=== PATIENT | female | born 1990 | race Caucasian/White ===

== ENCOUNTER → 2017-08-04 | Emergency (ER) | payer OTHER ==
[~2017-08-04] VITALS: Ht 154.9 cm; Wt 52.2 kg
[~2017-08-04] MED LIST: CYCLOBENZAPRINE10 MG PO; IBUPROFEN800 MG PO; KEFLEX500 MG PO; NAPROXEN500 MG PO; NORCO 5-325 TA1 EACH PO; ULTRAM50 MG PO; ZOFRAN ODT4 MG PO
== END ==
LOC: ED 03:37
DX: O04.6 Delayed or excessive hemorrhage following (induced) termination of pregnancy (principal); F17.200 Nicotine dependence, unspecified, uncomplicated
CPT/HCPCS: 76801; 76817; 84702; 85025; 96361; 96374; 96375; 99284; J2270; J2405; J7030

== ENCOUNTER 2021-09-28 15:59 | Emergency (ER) | payer OTHER ==
[~2021-09-28] VITALS: Ht 154.9 cm; Wt 74.8 kg
[~2021-09-28 15:59] MED LIST changes: +AMOXICILLIN500 MG PO
--- OUTSIDE RECORDS SUMMARY | 2021-09-28 16:06 | XMS ---
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 Dary has no Care Guidelines for this patient. Juan VISIT COUNT (12 MO.) 1 ROSY Aguirre TOTAL 1 NOTE: Visits indicate total known visits. ED/C VISIT TRACKING (12 MO.) 09/28/2021 16:00 [facility] TYPE: Emergency COMPLAINT: - RT KNEE INJURY INPATIENT VISIT TRACKING (12 MO.) No inpatient visits to display in this time frame [id number]
[2021-09-28] MEDS ORDERED: MONO-LINYAH1 EACH PO (16:19)
[2021-09-28] MEDS ORDERED: HYDROXYZINE HCL25 MG PO (16:19)
[2021-09-28] MEDS ORDERED: ESCITALOPRAM OX20 MG PO (16:19)
== END 2021-09-28 17:17 | disposition home or self-care (01) ==
LOC: ED 15:59
DX: M25.561 Pain in right knee (principal); D64.9 Anemia, unspecified; F17.200 Nicotine dependence, unspecified, uncomplicated; Z79.899 Other long term (current) drug therapy
CPT/HCPCS: 73560; 99283-25

== ENCOUNTER 2023-12-14 17:16 | Emergency (ER) | payer OTHER ==
[~2023-12-14] VITALS: Ht 154.9 cm; Wt 74.5 kg
[~2023-12-14 17:16] MED LIST changes: +AMPHETAMINE SAL10 MG PO; +DEXTROAMP-AMPHE30 MG PO; +ESCITALOPRAM OX20 MG PO; +HYDROXYZINE HCL25 MG PO; +MONO-LINYAH1 EACH PO; +NEXPLANON68 MG SUB-Q; +OMEPRAZOLE20 MG PO
--- OUTSIDE RECORDS SUMMARY | 2023-12-14 17:18 | XMS ---
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 EZac VISIT COUNT (12 MO.) 2 ROSY Aguirre TOTAL 2 NOTE: Visits indicate total known visits. 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
[2023-12-14] MEDS ORDERED: NAPROSYN500 MG PO (17:49)
[2023-12-14 17:55] VITALS: BP 132/76
== END 2023-12-14 17:55 | disposition home or self-care (01) ==
LOC: ED 17:16
DX: S93.401A Sprain of unspecified ligament of right ankle, initial encounter (principal); F17.200 Nicotine dependence, unspecified, uncomplicated; W01.0XXA Fall on same level from slipping, tripping and stumbling without subsequent striking against object, initial encounter; Z79.899 Other long term (current) drug therapy
CPT/HCPCS: 73610; 99283-25